=== PATIENT | female | born 1990 | race Caucasian/White ===

== ENCOUNTER 2016-05-22 16:45 | Inpatient (IN) | payer MEDICAID ==
[~2016-05-22] VITALS: Ht 160 cm; Wt 86.6 kg
[2016-05-22] MEDS ORDERED: BETAMET ACET/BETAMET NA PH 30 MG/5 ML VIAL IM ONE (17:15)
[2016-05-22] MEDS ORDERED: hydrALAZINE HCL 20 MG/ML VIAL IVP ONE (17:15)
[2016-05-22] MEDS ORDERED: LR 1,000 ML IV SCH (17:40)
[2016-05-22] MEDS ORDERED: hydrALAZINE HCL 20 MG/ML VIAL ONE (17:47)
[2016-05-22 18:12] LABS: BASOPHILS % (AUTO) 0.5 % (0.0-2.0); EOSINOPHILS # (AUTO) 0.1 K/uL (0.0-0.4); EOSINOPHILS % (AUTO) 0.9 % (0.0-4.0); HEMATOCRIT 32.5 % (36-48); HEMOGLOBIN 11.6 g/dL (12.0-16.0); LYMPHOCYTES # (AUTO) 1.8 K/uL (1.0-5.5); LYMPHOCYTES % (AUTO) 23.8 % (20.5-51.5); MEAN CORPUSCULAR HEMOGLOBIN 30 pg (27-31); MEAN CORPUSCULAR HGB CONC 36 % (32-36); MEAN CORPUSCULAR VOLUME 84 fL (79.0-98.0); MONOCYTES # (AUTO) 0.7 K/uL (0.0-1.0); MONOCYTES % (AUTO) 8.6 % (1.7-9.3); NEUTROPHILS % (AUTO) 66.2 % (40.0-70.0); PLATELET COUNT (AUTO) 204 K/uL (130-430); RED BLOOD CELL COUNT(AUTO) 3.88 MIL/uL (4.2-6.2); RED CELL DISTRIBUTION WIDTH 11.9 % (9.0-15.0); WHITE BLOOD COUNT (AUTO) 7.6 K/uL (4.8-10.8)
[2016-05-22 18:22] LABS: BILIRUBIN,URINE NEGATIVE (NEGATIVE); BLOOD, URINE NEGATIVE (NEGATIVE); CLARITY/URINE HAZY (CLEAR); COLOR,URINE YELLOW (YELLOW); GLUCOSE,URINE NEGATIVE (NEGATIVE); KETONES,URINE NEGATIVE (NEGATIVE); LEUKOCYTE ESTERASE ,URINE 1+ (NEGATIVE); NITRITE, URINE NEGATIVE (NEGATIVE); PROTEIN URINE NEGATIVE (NEGATIVE); UROBILINOGEN,URINE 0.2 (0.2-1.0)
[2016-05-22 18:45] LABS: BACTERIA,URINE FEW /HPF (None Seen); RBC,URINE NONE SEEN /HPF (0-3)
[2016-05-22 18:46] LABS: CALCIUM OXALATE CRYSTALS,UR 0-10 /HPF (None Seen); MUCUS,URINE 2+ /LPF (None Seen)
[2016-05-22 18:53] LABS: CALCIUM 9.9 mg/dL (8.4-11.0); CREATININE 0.76 mg/dL (0.55-1.30)
[2016-05-22 18:58] LABS: ALBUMIN 2.6 g/dL (3.4-4.8); TOTAL BILIRUBIN 0.2 mg/dL (0.0-1.0); TOTAL PROTEIN, SERUM 6.6 g/dL (6.4-8.3)
[2016-05-22 19:11] LABS: INR 0.9 (0.8-1.2); PROTHROMBIN TIME 9.9 SECS (9.5-12.5)
[2016-05-22] MEDS ORDERED: hydrALAZINE HCL 25 MG TABLET PO SCH (21:00)
[2016-05-23] MEDS ORDERED: hydrALAZINE HCL 25 MG TABLET PO SCH (05:30)
[2016-05-23] MEDS: hydrALAZINE HCL 25 MG TABLET PO SCH ×2 (08:08→18:09)
[2016-05-23] MEDS: METHYLDOPA 250 MG TABLET (ALDOMET) PO SCH ×2 (10:06→21:51)
[2016-05-23] MEDS ORDERED: BETAMET ACET/BETAMET NA PH 30 MG/5 ML VIAL IM ONE (18:00)
[2016-05-24 01:51] LABS: CREATININE 0.76 mg/dL (0.55-1.30)
[2016-05-24 01:52] LABS: TPROTEIN U,24HR 234.6 mg/24HR (0-130)
[2016-05-24 01:53] LABS: CREATININE CLEARANCE,URINE 108.7 ml/min (80-120); CREATININE,URINE 41.2 MG/DL (30-125)
[2016-05-24] MEDS: hydrALAZINE HCL 25 MG TABLET PO SCH (06:22)
[2016-05-24] MEDS: METHYLDOPA 250 MG TABLET (ALDOMET) PO SCH (10:55)
== END 2016-05-24 12:25 | disposition home or self-care (01) | DRG 540 ==
LOC: SPU 16:45
PROVIDERS: ADMIT Specialist; ATTEND Specialist
PROC: 10D00Z1 Extraction of Products of Conception, Low, Open Approach (ICD-10-PCS; principal; 2016-05-22)
DX: O13.3 Gestational [pregnancy-induced] hypertension without significant proteinuria, third trimester (principal); Z37.0 Single live birth; Z3A.32 32 weeks gestation of pregnancy
CPT/HCPCS: 36415; 80053; 81000-TC; 82575-TC; 84156; 85025; 85384-TC; 85610-TC; 85730-TC; J0360; J0702; J7120

== ENCOUNTER 2016-06-03 12:41 | Inpatient (IN) | payer MEDICAID, OTHER ==
[~2016-06-03] VITALS: Ht 160 cm; Wt 83.9 kg
[2016-06-03] MEDS ORDERED: COMMUNICATION ORDER XX ONE (16:15)
[2016-06-03 18:19] VITALS: BP 141/94; PULSE 87; RESP 18; TEMP 97.9
[2016-06-03] MEDS: METHYLDOPA 500 MG PO SCH (21:56)
[2016-06-04] MEDS: HYDRALAZINE 50 MG PO SCH ×2 (06:00→17:25)
[2016-06-04] MEDS: METHYLDOPA 500 MG PO SCH ×2 (10:00→22:12)
[2016-06-04] MEDS ORDERED: FIORCET ONE (22:35)
[2016-06-04] MEDS: FIORCET PO PRN (22:35)
[2016-06-05] MEDS: HYDRALAZINE 50 MG PO SCH ×3 (06:00→22:18)
[2016-06-05] MEDS: METHYLDOPA 500 MG PO SCH ×2 (10:00→22:17)
[2016-06-06] MEDS: METHYLDOPA 500 MG PO SCH ×2 (09:54→22:04)
[2016-06-06] MEDS: FIORCET PO PRN ×2 (13:42→22:11)
[2016-06-06] MEDS: HYDRALAZINE 50 MG PO SCH (17:45)
[2016-06-07] MEDS: HYDRALAZINE 50 MG PO SCH ×2 (05:49→18:05)
[2016-06-07] MEDS: METHYLDOPA 500 MG PO SCH ×2 (10:01→22:01)
[2016-06-08] MEDS: HYDRALAZINE 50 MG PO SCH ×3 (06:00→18:00)
[2016-06-08] MEDS: METHYLDOPA 500 MG PO SCH ×2 (10:00→22:11)
[2016-06-09] MEDS: HYDRALAZINE 50 MG PO SCH ×2 (05:45→18:45)
[2016-06-09] MEDS: METHYLDOPA 500 MG PO SCH ×2 (10:02→22:03)
[2016-06-10] MEDS: HYDRALAZINE 50 MG PO SCH (05:54)
[2016-06-10] MEDS: METHYLDOPA 500 MG PO SCH (22:00)
[2016-06-11] MEDS: HYDRALAZINE 50 MG PO SCH ×2 (06:00→17:54)
[2016-06-11] MEDS: METHYLDOPA 500 MG PO SCH (22:07)
[2016-06-12] MEDS: HYDRALAZINE 50 MG PO SCH (06:05)
[2016-06-12] MEDS: METHYLDOPA 500 MG PO SCH ×3 (09:45→22:00)
[2016-06-12 14:42] VITALS: Ht 160 cm; Wt 83.9 kg
[2016-06-13] MEDS: HYDRALAZINE 50 MG PO SCH ×2 (06:00→17:57)
[2016-06-13] MEDS: METHYLDOPA 500 MG PO SCH ×2 (10:30→22:00)
[2016-06-13] MEDS: FIORCET PO PRN (19:17)
[2016-06-14] MEDS: HYDRALAZINE 50 MG PO SCH (06:00)
== END 2016-06-14 07:30 | disposition home or self-care (01) | DRG 566 ==
LOC: SPU 12:41 → OBSVTOIN 18:49 → MERGE 18:49 → SPU 06-06 09:49
PROVIDERS: ADMIT Specialist; ATTEND Specialist
PROC: 4A1HX4Z Monitoring of Products of Conception, Cardiac Electrical Activity, External Approach (ICD-10-PCS; principal; 2016-06-03)
PROC: 4A1HXHZ Monitoring of Products of Conception, Cardiac Sound, External Approach (ICD-10-PCS; 2016-06-03)
PROC: 4A1HXFZ Monitoring of Products of Conception, Cardiac Rhythm, External Approach (ICD-10-PCS; 2016-06-03)
PROC: 4A1HXCZ Monitoring of Products of Conception, Cardiac Rate, External Approach (ICD-10-PCS; 2016-06-03)
DX: O13.3 Gestational [pregnancy-induced] hypertension without significant proteinuria, third trimester (principal); O36.8130 Decreased fetal movements, third trimester, not applicable or unspecified; O36.8930 Maternal care for other specified fetal problems, third trimester, not applicable or unspecified; Z3A.33 33 weeks gestation of pregnancy
CPT/HCPCS: 59025; 81002-TC; G0378

== ENCOUNTER 2016-06-14 12:57 | Inpatient (IN) | payer MEDICAID, OTHER ==
[~2016-06-14] VITALS: Ht 157.5 cm; Wt 95.3 kg
[2016-06-14 13:47] VITALS: BP_SYST 140
[2016-06-14] MEDS: hydrALAZINE HCL 25 MG TABLET PO SCH (18:07)
[2016-06-14] MEDS: METHYLDOPA 250 MG TABLET (ALDOMET) PO SCH (22:10)
[2016-06-15] MEDS: hydrALAZINE HCL 25 MG TABLET PO SCH ×2 (05:55→18:00)
[2016-06-15] MEDS: METHYLDOPA 250 MG TABLET (ALDOMET) PO SCH ×2 (10:00→22:23)
[2016-06-15] MEDS: PRENATAL VITS W-CA,FE,FA(<1MG) (PRENATAL) TABLET PO SCH (11:20)
[2016-06-15 21:24] LABS: BILIRUBIN,URINE NEGATIVE (NEGATIVE); BLOOD, URINE NEGATIVE (NEGATIVE); CLARITY/URINE HAZY (CLEAR); COLOR,URINE YELLOW (YELLOW); GLUCOSE,URINE NEGATIVE (NEGATIVE); KETONES,URINE NEGATIVE (NEGATIVE); LEUKOCYTE ESTERASE ,URINE TRACE (NEGATIVE); NITRITE, URINE NEGATIVE (NEGATIVE); PROTEIN URINE TRACE (NEGATIVE); UROBILINOGEN,URINE 0.2 (0.2-1.0)
[2016-06-15 22:26] LABS: BACTERIA,URINE MODERATE /HPF (None Seen); RBC,URINE 0-3 /HPF (0-3)
[2016-06-15 22:27] LABS: MUCUS,URINE 2+ /LPF (None Seen)
[2016-06-16] MEDS: hydrALAZINE HCL 25 MG TABLET PO SCH ×2 (06:06→17:56)
[2016-06-16] MEDS: PRENATAL VITS W-CA,FE,FA(<1MG) (PRENATAL) TABLET PO SCH (09:39)
[2016-06-16] MEDS: METHYLDOPA 250 MG TABLET (ALDOMET) PO SCH ×2 (09:39→21:29)
[2016-06-16 18:04] LABS: BILIRUBIN,URINE NEGATIVE (NEGATIVE); BLOOD, URINE NEGATIVE (NEGATIVE); CLARITY/URINE CLEAR (CLEAR); COLOR,URINE YELLOW (YELLOW); GLUCOSE,URINE NEGATIVE (NEGATIVE); KETONES,URINE NEGATIVE (NEGATIVE); LEUKOCYTE ESTERASE ,URINE TRACE (NEGATIVE); NITRITE, URINE NEGATIVE (NEGATIVE); PROTEIN URINE TRACE (NEGATIVE); UROBILINOGEN,URINE 0.2 (0.2-1.0)
[2016-06-16 18:07] LABS: BASOPHILS % (AUTO) 0.4 % (0.0-2.0); EOSINOPHILS # (AUTO) 0.1 K/uL (0.0-0.4); EOSINOPHILS % (AUTO) 1.1 % (0.0-4.0); HEMATOCRIT 37.4 % (36-48); HEMOGLOBIN 12.9 g/dL (12.0-16.0); LYMPHOCYTES % (AUTO) 24.6 % (20.5-51.5); MEAN CORPUSCULAR HEMOGLOBIN 30 pg (27-31); MEAN CORPUSCULAR HGB CONC 35 % (32-36); MEAN CORPUSCULAR VOLUME 87 fL (79.0-98.0); MONOCYTES # (AUTO) 0.4 K/uL (0.0-1.0); MONOCYTES % (AUTO) 5.1 % (1.7-9.3); NEUTROPHILS # (AUTO) 5.6 K/uL (1.8-7.7); NEUTROPHILS % (AUTO) 68.8 % (40.0-70.0); PLATELET COUNT (AUTO) 189 K/uL (130-430); RED CELL DISTRIBUTION WIDTH 12.1 % (9.0-15.0); WHITE BLOOD COUNT (AUTO) 8.1 K/uL (4.8-10.8)
[2016-06-16 18:16] LABS: ALBUMIN 2.7 g/dL (3.4-4.8); CALCIUM 10.2 mg/dL (8.4-11.0); TOTAL BILIRUBIN 0.2 mg/dL (0.0-1.0); URIC ACID 7.3 mg/dL (2.4-7.0)
[2016-06-16 18:21] LABS: BACTERIA,URINE FEW /HPF (None Seen); MUCUS,URINE None Seen /LPF (None Seen); RBC,URINE NONE SEEN /HPF (0-3)
[2016-06-17] MEDS: hydrALAZINE HCL 25 MG TABLET PO SCH (06:00)
[2016-06-17] MEDS ORDERED: CEFAZOLIN 2 GM IVPB PREMIX 50 ML IV ONE (09:00)
[2016-06-17] MEDS ORDERED: MORPHINE SULFATE 10MG/10ML PF AMP EP ONE (09:16)
[2016-06-17] MEDS ORDERED: OXYTOCIN 10 UNIT/ML VIAL IV ONE (09:16)
[2016-06-17] MEDS ORDERED: DEXAMETHASONE SOD PHOSPHATE 4 MG/ML VIAL IVP ONE (09:16)
[2016-06-17] MEDS ORDERED: ePHEDrine sulfate 50 MG/ML VIAL IV ONE (09:16)
[2016-06-17] MEDS ORDERED: NS IRRIG SOLN 1000 ML IR ONE (09:16)
[2016-06-17] MEDS ORDERED: fentaNYL CITRATE/PF 100 MCG/2 ML AMP IVP ONE (09:16)
[2016-06-17] MEDS ORDERED: LR 1,000 ML IV.SOLN IV ONE (09:16)
[2016-06-17] MEDS: PRENATAL VITS W-CA,FE,FA(<1MG) (PRENATAL) TABLET PO SCH (10:00)
[2016-06-17] MEDS ORDERED: LR 1,000 ML IV ONE (10:17)
[2016-06-17] MEDS ORDERED: OXYTOCIN/NORMAL SALINE 1,000 ML IV ONE (10:20)
[2016-06-17] MEDS ORDERED: NALBUPHINE HCL 10 MG/ML AMP IVP PRN (10:30)
[2016-06-17] MEDS ORDERED: KETOROLAC TROMETHAMINE 30 MG VIAL IM PRN (10:30)
[2016-06-17] MEDS ORDERED: BISACODYL 10 MG/SUPPOSITORY RC PRN (10:30)
[2016-06-17] MEDS ORDERED: OXYCODONE/ACETAMINOPHEN 5-325 TABLET PO PRN (10:30)
[2016-06-17] MEDS ORDERED: fentaNYL CITRATE/PF 100 MCG/2 ML AMP IVP PRN (10:30)
[2016-06-17] MEDS ORDERED: ONDANSETRON HCL 4 MG/2 ML VIAL IVP PRN ×2 (10:30)
[2016-06-17] MEDS ORDERED: MEASLES,MUMPS&RUBELLA VACC/PF 12500 UNIT/0.5 ML VIAL SUBQ PRN (10:30)
[2016-06-17] MEDS ORDERED: RHO(D) IMMUNE GLOBULIN/MALTOSE 1500 UNITS/1.3 ML (WINHRO) IM PRN (10:30)
[2016-06-17] MEDS ORDERED: LANOLIN 7 GM OINT. TP PRN (10:30)
[2016-06-17] MEDS ORDERED: NALOXONE HCL 0.4 MG/ML AMP (NARCAN) IVP PRN (10:30)
[2016-06-17] MEDS ORDERED: DIPHENHYDRAMINE INJ 50 MG/ML VIAL IVP PRN (10:30)
[2016-06-17] MEDS ORDERED: ANUSOL 1 EA SUPP.RECT (PREPARATION H) RC PRN (10:30)
[2016-06-17] MEDS ORDERED: HYDROcodone/ACETAMIN 5-325 MG TAB (NORCO/ VICODIN) PO PRN (10:30)
[2016-06-17] MEDS ORDERED: ePHEDrine sulfate 50 MG/ML VIAL IVP PRN (10:30)
[2016-06-17] MEDS ORDERED: SENNOSIDES/DOCUSATE SODIUM 1 TAB TABLET(SENOKOT-S) PO PRN (10:30)
[2016-06-17] MEDS ORDERED: DIPHENHYDRAMINE INJ 50 MG/ML VIAL ONE (10:35)
[2016-06-17 10:41] VITALS: BP_SYST 145
[2016-06-17] MEDS: CEFAZOLIN 1 GM IVPB PREMIX 50 ML IV SCH (19:58)
[2016-06-17] MEDS: LR 1,000 ML IV SCH (20:00)
[2016-06-17] MEDS ORDERED: TEMAZEPAM 15 MG CAPSULE PO PRN (21:00)
[2016-06-17] MEDS: METHYLDOPA 250 MG TABLET (ALDOMET) PO SCH (22:32)
[2016-06-18] MEDS: CEFAZOLIN 1 GM IVPB PREMIX 50 ML IV SCH ×2 (01:56→08:00)
[2016-06-18] MEDS: KETOROLAC TROMETHAMINE 30 MG VIAL IVP SCH ×2 (01:57→08:00)
[2016-06-18] MEDS: LR 1,000 ML IV SCH (05:20)
[2016-06-18 06:32] LABS: BASOPHILS # (AUTO) 0.1 K/uL (0.0-0.2); BASOPHILS % (AUTO) 0.5 % (0.0-2.0); EOSINOPHILS % (AUTO) 0.4 % (0.0-4.0); HEMATOCRIT 33.9 % (36-48); HEMOGLOBIN 11.3 g/dL (12.0-16.0); LYMPHOCYTES # (AUTO) 2.2 K/uL (1.0-5.5); LYMPHOCYTES % (AUTO) 19.7 % (20.5-51.5); MEAN CORPUSCULAR HEMOGLOBIN 29 pg (27-31); MEAN CORPUSCULAR HGB CONC 33 % (32-36); MEAN CORPUSCULAR VOLUME 88 fL (79.0-98.0); MONOCYTES # (AUTO) 0.6 K/uL (0.0-1.0); MONOCYTES % (AUTO) 5.6 % (1.7-9.3); NEUTROPHILS # (AUTO) 8.3 K/uL (1.8-7.7); NEUTROPHILS % (AUTO) 73.8 % (40.0-70.0); PLATELET COUNT (AUTO) 163 K/uL (130-430); RED BLOOD CELL COUNT(AUTO) 3.86 MIL/uL (4.2-6.2); RED CELL DISTRIBUTION WIDTH 12.2 % (9.0-15.0); WHITE BLOOD COUNT (AUTO) 11.2 K/uL (4.8-10.8)
[2016-06-18] MEDS: METHYLDOPA 250 MG TABLET (ALDOMET) PO SCH ×2 (10:00→21:28)
[2016-06-18] MEDS ORDERED: KETOROLAC TROMETHAMINE 30 MG VIAL IVP ONE (14:00)
[2016-06-18] MEDS: hydrALAZINE HCL 25 MG TABLET PO SCH (18:00)
[2016-06-18] MEDS: DOCUSATE SODIUM 100 MG CAPSULE PO PRN ×2 (18:22→20:49)
[2016-06-18] MEDS: IBUPROFEN 600 MG TABLET PO SCH ×2 (18:23→23:53)
[2016-06-18] MEDS: SIMETHICONE 80 MG TAB.CHEW PO PRN (18:23)
[2016-06-18] MEDS: OXYCODONE/ACETAMINOPHEN 5-325 TABLET PO PRN (20:50)
[2016-06-19] MEDS: OXYCODONE/ACETAMINOPHEN 5-325 TABLET PO PRN ×3 (04:10→17:35)
[2016-06-19] MEDS: IBUPROFEN 600 MG TABLET PO SCH ×3 (06:14→17:35)
[2016-06-19] MEDS: hydrALAZINE HCL 25 MG TABLET PO SCH ×2 (06:16→17:50)
[2016-06-19] MEDS: DOCUSATE SODIUM 100 MG CAPSULE PO PRN ×2 (08:44→22:06)
[2016-06-19] MEDS: SIMETHICONE 80 MG TAB.CHEW PO PRN ×4 (08:44→22:06)
[2016-06-19] MEDS: METHYLDOPA 250 MG TABLET (ALDOMET) PO SCH ×2 (09:40→22:06)
[2016-06-19] MEDS: PRENATAL VITS W-CA,FE,FA(<1MG) (PRENATAL) TABLET PO SCH (11:44)
[2016-06-20] MEDS: IBUPROFEN 600 MG TABLET PO SCH ×2 (00:20→06:05)
[2016-06-20] MEDS: hydrALAZINE HCL 25 MG TABLET PO SCH (06:06)
[2016-06-20] MEDS: DOCUSATE SODIUM 100 MG CAPSULE PO PRN (09:07)
[2016-06-20] MEDS: PRENATAL VITS W-CA,FE,FA(<1MG) (PRENATAL) TABLET PO SCH (09:07)
[2016-06-20] MEDS: SIMETHICONE 80 MG TAB.CHEW PO PRN (09:07)
[2016-06-20] MEDS: OXYCODONE/ACETAMINOPHEN 5-325 TABLET PO PRN (09:07)
[2016-06-20] MEDS: METHYLDOPA 250 MG TABLET (ALDOMET) PO SCH (10:42)
== END 2016-06-20 12:00 | disposition home or self-care (01) | DRG 540 ==
LOC: SPU 12:57 → OBSVTOIN 13:35 → MERGE 13:35 → SPU 06-18 18:00
PROVIDERS: ADMIT Specialist; ATTEND Specialist
PROC: 0UL70CZ Occlusion of Bilateral Fallopian Tubes with Extraluminal Device, Open Approach (ICD-10-PCS; 2016-06-17)
PROC: 10D00Z1 Extraction of Products of Conception, Low, Open Approach (ICD-10-PCS; principal; 2016-06-17 09:36)
DX: O13.4 Gestational [pregnancy-induced] hypertension without significant proteinuria, complicating childbirth (principal); O60.14X0 Preterm labor third trimester with preterm delivery third trimester, not applicable or unspecified; O36.5930 Maternal care for other known or suspected poor fetal growth, third trimester, not applicable or unspecified; E88.09 Other disorders of plasma-protein metabolism, not elsewhere classified; O76 Abnormality in fetal heart rate and rhythm complicating labor and delivery; O34.219 Maternal care for unspecified type scar from previous cesarean delivery; O69.81X0 Labor and delivery complicated by cord around neck, without compression, not applicable or unspecified; Z30.2 Encounter for sterilization; Z37.0 Single live birth; Z3A.36 36 weeks gestation of pregnancy
CPT/HCPCS: 36415; 59025; 80053; 81000-TC; 81002-TC; 84550-TC; 85025; 85384-TC; 86592; 86886; 86900; 86901; 88307; 94760; G0378; J0690; J1100; J1200; J1885; J2274; J2590; J3010; J7120